=== PATIENT | female | born 1945 | race Caucasian/White ===

== ENCOUNTER → 2022-05-23 12:22 | Outpatient (CLI) | payer MEDICARE, OTHER, SELFPAY ==
--- NOTE | 2022-05-23 12:31 | DI.ECHO.S_ITS ---
[facility] +---------+ : : [address] : : : : [id number] : : : : Phone: [phone]+ Echocardiogram Report + + :Name: TAPAN VENCES Study Date: 05/23/2022 Height: 67.5 in: :[facility] ReadingLocation: Weight: 205 lb : : Gender: Female BSA: 2.1 m2 : :: 1945 Age: 76 yrs BP: 124/78 mmHg: :Reason For Study: ATRIAL FIBRILLATION : :Ordering Physician: DARLENE, : :RAVI Meraz Performed By: Babita Callejas : :Referring: RAVI COLON : + + Interpretation Summary The ejection fraction is estimated to be 15-20%. There is severe global hypokinesis of the left ventricle. Diastolic function could not be accurately assessed due to atrial fibrillation. Right ventricular systolic function is mildly reduced. The right ventricular systolic pressure is estimated to be at least 31 mmHg based on an estimated right atrial pressure of 3 mm Hg. The left atrium is severely dilated. The right atrium is mildly dilated. There is mild to moderate mitral regurgitation. There is moderate tricuspid regurgitation. No prior studies available for comparison. Procedure: A two-dimensional transthoracic echocardiogram with color flow and Doppler was performed. The study quality was technically good. There is no prior echocardiogram noted for this patient. The patient was in atrial fibrillation with heart rates between 95-120 bpm during the exam. Left Ventricle: The left ventricle is normal in size. There is mild concentric left ventricular hypertrophy. The ejection fraction is estimated to be 15-20%. There is severe global hypokinesis of the left ventricle. Diastolic function could not be accurately assessed due to atrial fibrillation. Right Ventricle: The right ventricle is mildly dilated. Right ventricular systolic function is mild to moderately reduced. Atria: The left atrium is severely dilated. The right atrium is mildly dilated. There is no Doppler evidence for an interatrial shunt. Mitral Valve: There is moderate mitral annular calcification. The mitral valve leaflets appear moderately thickened, but open well. There is mild to moderate mitral regurgitation. Aortic Valve: The aortic valve is trileaflet. The aortic valve is mildly calcified. There is mild to moderately reduced leaflet mobility. There is no hemodynamically significant valvular aortic stenosis. There is trace aortic regurgitation. Tricuspid Valve: The tricuspid valve leaflets are thin and pliable. There is moderate tricuspid regurgitation. The right ventricular systolic pressure is estimated to be at least 31 mmHg based on an estimated right atrial pressure of 3 mm Hg. Pulmonic Valve: The pulmonic valve leaflets are thin and pliable; valve motion is normal. There is mild pulmonic regurgitation. Great Vessels: The aortic root is normal size. The ascending aorta is at the upper limits of normal in size. The IVC is of normal diameter and collapses greater than 50% with a sniff. This suggests a low right atrial pressure of 3 mm Hg. Pericardium/ Pleura There is no pericardial effusion. There is no pleural effusion. MMode/2D Measurements & Calculations LVIDd: 5.2 cm LVOT diam: 2.1 cm LVIDs: 4.9 cm Ao root diam: 3.5 cm FS: 5.8 % asc Aorta Diam: 3.8 cm EPSS: 1.3 cm Ao Arch Diam (Prox Trans): 3.4 cm IVSd: 1.1 cm LVPWd: 0.90 cm LV cruz. diameter/BSA (cm/m^2): 2.5 LV sys. diameter/BSA (cm/m^2): 2.4 LA A2 area: 35.0 cm2 RA long axis: 6.0 cm LA A4 area: 42.3 cm2 RA area: 23.0 cm2 LA length (vol): 7.7 cm RA vol: 75.2 ml LA vol: 163.5 ml RA : 36.6 ml/m2 LA vol index: 79.6 ml/m2 IVC diam: 1.9 cm RVD1 (basal): 4.3 cm RVD2 (mid): 3.4 cm TAPSE: 1.4 cm Doppler Measurements & Calculations Ao V2 max: 127.3 cm/sec LVOT Max Dileep: 62.0 cm/sec Ao V2 mean: 97.0 cm/sec LV V1 max P.5 mmHg Ao max P.5 mmHg LV V1 VTI: 8.6 cm Ao mean P.2 mmHg THEA(I,D): 1.3 cm2 Ao V2 VTI: 22.8 cm THEA(V,D): 1.7 cm2 sev ratio: 0.37 THEA indexed to BSA (cm^2/m^2): 0.65 MV E max dileep: 131.0 cm/sec TR max dileep: 263.0 cm/sec MV A max dileep: 3.7 cm/sec TR max P.7 mmHg MV E/A: 35.3 PA pr(Accel): 44.7 mmHg Med Peak E' Dileep: 4.4 cm/sec E/E' med: 29.7 Lat Peak E' Dileep: 7.3 cm/sec E/E' lat: 18.1 E/e' average: 23.9 MV dec time: 0.14 sec SV(LVOT): 30.6 ml Reading Physician:HENNY
== END ==
PROVIDERS: PCP Internal Medicine; Referring Provider Internal Medicine; Visit Provider Internal Medicine
DX: I48.91 Unspecified atrial fibrillation (principal); I50.9 Heart failure, unspecified; I08.1 Rheumatic disorders of both mitral and tricuspid valves
CPT/HCPCS: 93306